=== PATIENT | female | born 1990 | race Caucasian/White ===

== ENCOUNTER 2024-05-14 08:21 | Outpatient (AMB) | payer OTHER, SELFPAY ==
--- NOTE | 2024-05-14 08:32 | A.OFFPC_ITS ---
Vital Signs 05/14/24 08:36 05/14/24 09:18 Height 5 ft 1 in Weight 193 lb 4 oz BMI 36.5 BP 132/88 128/84 Blood Pressure Location Rt brachial Lt brachial Position Sitting Sitting Respiration 12 Pulse 92 Pulse Source Pulse Oximeter Temp 98.7 F Temp Source Oral Pulse Oximetry (%) 98 Oxygen Delivery Method Room Air Intake Visit Reasons: Est. 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 She transferred from [facility]. The patient takes 5 mg of amlodipine daily for hypertension. Her blood pressure is suboptimal today, but when she checks it at home it is within normal limits. It tends to run higher at the office she says. She was seen at urgent care about a month ago for chest pain which was diagnosed as acid reflux. Patient states EKG was normal. She took omeprazole for 2 weeks, and symptoms resolved on this medication. She does not have recurrent chest pain, but she gets acid reflux sometimes when she has marinara sauce or spicy food. She is taking Pepcid as needed. No vomiting, blood in stools, dysphagia, unexplained weight loss. She would like to see Dermatology for an ongoing scalp rash for years. She says it is bumpy and red. Sometimes it is scaly. She uses a shampoo that is bilx-vmh-[id number] for psoriasis, and this has helped significantly. She also has eczema that she uses an gxjl-nyd-nahflli lotion for, and she would like a skin exam. She has been on medications for ADHD since age 14. She is stable on Adderall 30 mg half a tablet twice daily. She is also on bupropion for depression which is controlled. 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 She takes Zyrtec for allergies and Flonase as needed. She gets some wheezing in the winter due to allergies and uses albuterol for this. ROS: Constitutional: No unexplained weight loss, fever, chills, fatigue or night sweats. Respiratory: No shortness of breath, cough or sputum production. Cardiovascular: No chest pain, chest pressure or chest discomfort. No palpitations or pedal edema. Gastrointestinal: No anorexia, nausea, vomiting or diarrhea. No abdominal pain or blood in stool. Psychiatric: No SI/HI. Physical exam: Constitutional: Alert, in no distress. Eyes: Pupils are equal, round and reactive to light. Extraocular muscles intact. Respiratory: Clear to auscultation. Cardiovascular: S1 S2 regular. No murmurs. Gastrointestinal: Abdomen soft, non-tender, non-distended. Skin: A few red papules scattered on the upper extremities. Extremities: Warm and well perfused. No clubbing, cyanosis or edema. 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 How often do you have a drink containing alcohol?: Monthly or less 2. How many drinks containing alcohol do you have on a typical day when you are drinking?: 1 or 2 3. How often do you have six or more drinks on one occasion?: Never Total Score: 1 Physical exam (Primary Care) Vital Signs: Last Vital Signs Temp 98.7 F 05/14/24 08:36 Pulse 92 05/14/24 08:36 Resp 12 05/14/24 08:36 BP 132/88 05/14/24 08:36 Pulse Ox 98 05/14/24 08:36 Oxygen Delivery Method Room Air 05/14/24 08:36 BMI result Body Mass Index 36.5 Tobacco/Smoking Status: Tobacco use Status Tobacco use date assessed 05/14/24 05/14/24 08:40 Patient Tobacco Use Status Former Tobacco user 05/14/24 08:40 Immunizations Boostrix Tdap 2.5 Lf unit-8 mcg-5 Lf/0.5 mL intramuscular syringe Performing Provider: EUGENE Ferrer Performing Location: [facility] Administered by: Ai Roland CMA on 05/14/24 09:18 Dose Route Admin Location Dispensed Lot Number Expiration Date NDC Guidance Services Coordinator 0.5 mL IM Right Deltoid 0.5 mL [id number] 06/03/26 78736-908-24 D[facility] Room VIS Given Date VIS Provided VIS Publication Date 05/14/24 Single Vaccine 21 Eligibility Eligibility Date Funding Source Not [facility] Eligible 05/14/24 Private Assessment and Plan Assessment & Plan (1) Hypertension: Code(s): I10 - Essential (primary) hypertension Qualifiers: Hypertension type: primary hypertension Qualified Code(s): I10 - Essential (primary) hypertension Plan: Lifestyle modifications reviewed with the patient. Continue amlodipine 5 mg. Blood pressure is suboptimal, but it sounds like she has a component of office hypertension. She will bring a log from home to review at her physical. (2) Depression: Code(s): F32.A - Depression, unspecified Qualifiers: Depression Type: other depression Qualified Code(s): F32.89 - Other specified depressive episodes Plan: Stable. Continue Wellbutrin XL 300 mg daily. (3) ADHD: Code(s): F90.9 - Attention-deficit hyperactivity disorder, unspecified type Qualifiers: Attention deficit-hyperactivity disorder type: unspecified Qualified Code(s): F90.9 - Attention-deficit hyperactivity disorder, unspecified type Plan: Stable. Continue Adderall 30 mg half a tablet twice daily. (4) Eczema: Code(s): L30.9 - Dermatitis, unspecified Plan: Refer to dermatology. (5) Acid reflux: Code(s): K21.9 - Gastro-esophageal reflux disease without esophagitis Qualifiers: Esophagitis presence: without esophagitis Qualified Code(s): K21.9 - Gastro-esophageal reflux disease without esophagitis Plan: Recommended avoidance of spicy and acidic foods. Weight loss may also decrease symptoms. Patient will continue wcav-[id number]-psrzzgz antacids as needed. Plan Patient is due for a physical exam in May. She will schedule next available. Overdue for Tdap-transfer record reviewed. Tdap administered today. Orders: Orders TDaP Immunization Today Z23 - Encounter for immunization Medications: New albuterol sulfate 90 mcg/actuation 2 puffs inhalation .Q4 H PRN 8.5 grams 0RF shortness of breath or wheezing Boostrix Tdap (diphth,pertus(acell),tetanus) 0.5 mL IM ONCE 0.5 mL 0RF NS Z23 - Encounter for immunization Coding Level of Care Code New Pt Level 4 (46956) Diagnoses Primary hypertension I10 Hypertension type: primary hypertension Other depression F32.89 Depression Type: other depression Attention deficit hyperactivity disorder (ADHD), unspecified ADHD type F90.9 Attention deficit-hyperactivity disorder type: unspecified Eczema L30.9 Gastroesophageal reflux disease without esophagitis K21.9 Esophagitis presence: without esophagitis
[2024-05-14 08:36] VITALS: BP 132/88; PULSE 92; RESP 12; TEMP 37.1; O2SAT 98; BMI 36.5
[2024-05-14 09:18] VITALS: BP 128/84
== END 2024-05-14 09:18 | disposition home or self-care (01) ==
PROVIDERS: PCP Internal Medicine; Visit Provider Physician Assistant Medical
DX: I10 Essential (primary) hypertension (principal); F32.89 Other specified depressive episodes; F90.9 Attention-deficit hyperactivity disorder, unspecified type; L30.9 Dermatitis, unspecified; K21.9 Gastro-esophageal reflux disease without esophagitis; Z23 Encounter for immunization

== ENCOUNTER → 2024-05-14 08:21 | Outpatient (BNVA) | payer OTHER, SELFPAY | PROVIDERS: PCP Internal Medicine; Visit Provider Physician Assistant Medical | DX: I10 Essential (primary) hypertension (principal); F32.89 Other specified depressive episodes; F90.9 Attention-deficit hyperactivity disorder, unspecified type; L30.9 Dermatitis, unspecified; K21.9 Gastro-esophageal reflux disease without esophagitis; Z79.899 Other long term (current) drug therapy; Z23 Encounter for immunization | CPT/HCPCS: 90471; 90715 ==

== ENCOUNTER 2024-07-02 08:27 | Outpatient (AMB) | payer OTHER, SELFPAY ==
--- NOTE | 2024-07-02 08:30 | A.OFFPC_ITS ---
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 The patient takes 5 mg of amlodipine daily for hypertension. The patient was contact by Dermatology, but she did not schedule the appointment yet. She also mentions a mole on her right upper back. It has been there for a few years. It has slowly enlarged. No personal or family history of skin cancer. I referred her anew and asked her to call [facility] back to schedule the appointment. She has been on medications for ADHD since age 14. She is stable on Adderall 30 mg half a tablet twice daily. She is also on bupropion for depression which is controlled. 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 UDS ordered, and she signed a controlled substance contract today. She takes Zyrtec for allergies and Flonase as needed. She gets some wheezing in the winter due to allergies and uses albuterol for this. She would like to see a dietitian to help with weight loss. Referred. She thomas schedule her eye exam. Her anatomic pathology assistant is in [place]. She is up to date. ROS: Constitutional: No unexplained weight loss, fever, chills, fatigue or night sweats. Eyes: No vision changes, blurry vision, double vision, eye pain, eye redness, eye discharge. ENT: No hearing loss, sneezing, congestion, runny nose or sore throat. Respiratory: No shortness of breath, cough or sputum production. Cardiovascular: No chest pain, chest pressure or chest discomfort. No palpitations or pedal edema. Gastrointestinal: No anorexia, nausea, vomiting or diarrhea. No abdominal pain or blood in stool. Genitourinary: No dysuria, hematuria, urinary frequency. Neurologic: No headache, dizziness, syncope, unilateral weakness, ataxia, numbness or tingling in the extremities. Musculoskeletal: No muscle pain, back pain, joint pain or swelling. Hematologic/Lymphatics: No bleeding or bruising. No painful lymph nodes. Skin: No rash or itching. Endocrine: No cold or heat intolerance. No polyuria or polydipsia. Psychiatric: No depression or anxiety. No SI/HI. Physical exam: Constitutional: Alert, in no distress. Head: Normocephalic. Eyes: Pupils are equal, round and reactive to light. Extraocular muscles intact. Ear, Nose and Throat: Canals clear. TMs normal. Normal nasal mucosa. No nasal discharge. No oral lesions. Neck: Supple, Full range of motion. No lymphadenopathy. No palpable thyroid masses. Respiratory: Clear to auscultation. Cardiovascular: S1 S2 regular. No murmurs. Gastrointestinal: Abdomen soft, non-tender, non-distended. Normal bowel sounds. No palpable masses. Neurologic: No focal neurological deficits. Symmetric patellar reflexes. Moves all extremities spontaneously. Sensation intact bilaterally. Skin: Asymmetric brown nevus on the right upper back with heterogenous coloring and rough surface Musculoskeletal: No gross deformities. Normal range of motion. Extremities: Warm and well perfused. No clubbing, cyanosis or edema. 3+ peripheral pulses bilaterally. Psychiatric: Normal mood and affect [facility] Medical History (Updated 07/02/24 @ 13:52 by EUGENE Ferrer) Routine physical examination Obesity Change in nevus Acid reflux Eczema Vitamin D deficiency Wheezing ADHD Hypertension Renal cyst Depression Allergic rhinitis Family History (Updated 05/14/24 @ 09:07 by Ai Roland CMA) Paternal Grandmother Lung cancer Maternal Aunt Cancer Father Hypertension Other FH: mental illness Substance use Social History Housing: House Patient Tobacco Use Status: Former Tobacco user Years Smoked: 4 e-Cigarette/Vaping Use: Never Used Second Hand Smoke Exposure: No service: No Current occupational status: employed 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 1. Little interest or pleasure in doing things: several days 2. Feeling down, depressed, or hopeless: not at all 3. Trouble falling or staying asleep, or sleeping too much: not at all 4. Feeling tired or having little energy: several days 5. Poor appetite or overeating: several days 6. Feeling bad about yourself - or that you are a failure or have let yourself or your family down: not at all 7. Trouble concentrating on things, such as reading the newspaper or watching television: several days 8. Moving or speaking so slowly that other people could have noticed. Or the opposite - being so fidgety or restless that you have been moving around a lot more than usual: not at all 9. Thoughts that you would be better off or of hurting yourself in some way: not at all Total score: 4 79076 - PHQ-9 Billing: Yes Source: Developed by Drs. Miquel Caballero, Barbra Whipple, Santy Cruz and colleagues, with an educational brenna from [employer]. Thrive Questionnaire Date Thrive assessed: 07/02/24 I am a: Patient What is your living situation today?: I have a steady place to live Within the past 12 months, did the food you bought not last and you didn't have the money to get more?: Never true Within the past 12 months, did you worry whether your food would run out before you got money to buy more?: Never true Do you have trouble paying for medicines?: No Do you have trouble getting transportation to medical appointments?: No Do you have trouble paying your heating and electricity bill?: No Do you have trouble taking care of your child, family member or friend?: No Do you have trouble with day-to-day activities such as bathing, preparing meals, shopping, managing finances, etc.?: No Are you currently unemployed and looking for a job?: No Are you interested in more education?: No Please select the resources that you would like help with: None Currently or been in a relationship where the following occur: No concerns reported THRIVE Score: 0 AUDIT C Alcohol Use Questionnaire (AUDIT-C) 1. How often do you have a drink containing alcohol?: 2-4 times a month 2. How many drinks containing alcohol do you have on a typical day when you are drinking?: 1 or 2 3. How often do you have six or more drinks on one occasion?: Never Total Score: 2 CAROLE-7 AMB Questionnaire CAROLE-7 Date CAROLE - 7 assessed: 07/02/24 Feeling nervous, anxious, or on edge: 1 = Several days Not being able to stop or control worryin = Not at all Worrying too much about different things: 0 = Not at all Trouble relaxin = Not at all Being so restless that it is hard to sit still: 0 = Not at all Becoming easily annoyed or irritable: 1 = Several days Feeling afraid as if something awful might happen: 0 = Not at all Total CAROLE-7 score (0-4 normal; 5-9 mild; 10-14 moderate; 15-21 severe): 2 Source: Developed by Drs. Miquel Caballero, Barbra Whipple, Santy Cruz and colleagues, with an educational brenna from [employer]. CAROLE-7 Assessment Billing CAROLE-7 Assessment Tool: CAROLE-7 Assessment 14801 Physical exam (Primary Care) Vital Signs: Last Vital Signs Temp 96.4 F L 07/02/24 08:34 Pulse 91 07/02/24 08:34 Resp 13 07/02/24 08:34 BP 131/68 07/02/24 08:34 Pulse Ox 97 07/02/24 08:34 Oxygen Delivery Method Room Air 07/02/24 08:34 BMI result Body Mass Index 36.5 Tobacco/Smoking Status: Tobacco use Status Tobacco use date assessed 07/02/24 07/02/24 08:36 Patient Tobacco Use Status Former Tobacco user 07/02/24 08:33 e-Cigarette/Vaping Use Never Used 07/02/24 08:36 PHQ-9: PHQ-9 Score PHQ-9: Total score 4 07/02/24 08:42 Thrive Assessment: Date of Thrive Assessment Date Thrive assessed 07/02/24 07/02/24 08:33 Currently or been in a relationship where the following occur: No concerns reported Office Procedures Flu Questionnaire Does the patient have a severe egg allergy?: No Does the patient have severe life threatening allergies?: No Does the patient have a fever or illness today?: No Has the patient ever had Guillain-Parks Syndrome?: No Has the patient ever had any past reaction to a flu shot?: No Immunizations Fluarix Triv [id number] (PF) 45 mcg (15 mcg x 3)/0.5 mL IM syringe Performing Provider: EUGEEN Ferrer [place] [facility] [place] [facility] Administered by: Samantha Odom RN on 07/02/24 09:17 Dose Route Admin Location Dispensed Lot Number Expiration Date NDC Health And Safety Coordinator 0.5 mL IM Right Deltoid 0.5 mL [id number] 02/22/25 69011-967-51 [employer] VIS Given Date VIS Provided VIS Publication Date 07/02/24 Single Vaccine 21 Eligibility Eligibility Date Funding Source Not C Eligible 07/02/24 Private Administration Comments: Patient declined the VIS. Coding Level of Care Code Est Pt Prev Care 18-39y(95773) Diagnoses Routine physical examination Z00.00 Additional Codes CAROLE-7 Assessment Billing - CAROLE-7 Assessment Tool: CAROLE-7 Assessment 02419 ([id number]) PHQ-9 - 57507 - PHQ-9 Billing: Yes ([id number]) Assessment & Plan Assessment & Plan (1) Routine physical examination: Code(s): Z00.00 - Encounter for general adult medical examination without abnormal findings Category: Medical Plan Patient is seen today for a routine physical. As part of this visit we reviewed the following issues, which are considered and essential part of preventative health in this age group: - Breast Cancer screening - Annual Last Chalker exam - Blood pressure screening annually - Cholesterol screening - Osteoporosis prevention including calcium/vitamin D intake, weight bearing exercise & smoking cessation - Nutritional and exercise counseling - Counseling of injury prevention including fire prevention, smoke alarms and seat belt usage - Screening for depression - Prevention of and/or testing for infectious diseases - Education about skin cancer - Recommendations about immunizations - Recommendation of an eye exam - Screening for substance abuse Follow up in 6 months for a medication review. Orders: Orders TSH reflex Free T4 Today E55.9 - Vitamin D deficiency, unspecified, I10 - Essential (primary) hypertension, Z00.00 - Encounter for general adult medical examination without abnormal findings, Z51.81 - Encounter for therapeutic drug level monitoring Complete Blood Count no Diff Today E55.9 - Vitamin D deficiency, unspecified, I10 - Essential (primary) hypertension, Z00.00 - Encounter for general adult medical examination without abnormal findings, Z51.81 - Encounter for therapeutic drug level monitoring Vitamin D 1,25 dihydroxy Today E55.9 - Vitamin D deficiency, unspecified Lipid Panel Today E55.9 - Vitamin D deficiency, unspecified, E78.5 - Hyperlipidemia, unspecified, I10 - Essential (primary) hypertension, Z00.00 - Encounter for general adult medical examination without abnormal findings, Z51.81 - Encounter for therapeutic drug level monitoring Comprehensive Met. Panel Today E55.9 - Vitamin D deficiency, unspecified, I10 - Essential (primary) hypertension, Z00.00 - Encounter for general adult medical examination without abnormal findings, Z51.81 - Encounter for therapeutic drug level monitoring Drug Screen Urine Today E55.9 - Vitamin D deficiency, unspecified, I10 - Essential (primary) hypertension, Z00.00 - Encounter for general adult medical examination without abnormal findings, Z51.81 - Encounter for therapeutic drug level monitoring Influenza [id number] Immunization Today Z23 - Encounter for immunization Referrals Professor Of Genetics Nutrition Referral E66.9 - Obesity, unspecified Medications: New bupropion HCl XL 300 mg PO DAILY 90 tabs 3RF amlodipine 5 mg PO DAILY 90 tabs 3RF Refilled dextroamphetamine-amphetamine 30 mg 1 tab PO DAILY 30 tabs 0RF
[2024-07-02 08:34] VITALS: BP 131/68; PULSE 91; RESP 13; TEMP 35.8; O2SAT 97; BMI 36.5
== END 2024-07-02 09:16 | disposition home or self-care (01) ==
PROVIDERS: PCP Physician Assistant Medical; Visit Provider Physician Assistant Medical
DX: Z23 Encounter for immunization (principal); Z00.00 Encounter for general adult medical examination without abnormal findings

== ENCOUNTER → 2024-07-02 08:27 | Outpatient (BNVA) | payer OTHER, SELFPAY | PROVIDERS: PCP Physician Assistant Medical; Visit Provider Physician Assistant Medical | DX: Z00.00 Encounter for general adult medical examination without abnormal findings (principal); Z23 Encounter for immunization; E55.9 Vitamin D deficiency, unspecified; I10 Essential (primary) hypertension | CPT/HCPCS: 90471; 90656; 96127 ==

== ENCOUNTER 2024-12-25 09:02 | Outpatient (REF) | payer OTHER, SELFPAY ==
--- OUTSIDE RECORDS SUMMARY | 2024-12-25 09:32 | XMS_ITS | Clinical Summary ---
Author Organization [facility] Address [address] [place] [address] Care Team Providers Care Dynamite Shooter Name Role Phone Pcp, No Primary Care Provider Unavailabl e Allergies No known active allergies Medications Cetirizine HCl (ZYRTEC ALLERGY PO) ZyrTEC Allergy 10 MG Oral Tablet ; Start Date: ; End Date: Active amLODIPine (NORVASC) 5 MG tablet Take 5 mg by mouth. 03/12/2022 Active amphetamine-dex troamphetamine (ADDERALL) 30 MG tablet Take 0.5 tablets by mouth 2 (two) times a day. 07/15/2022 Active buPROPion (WELLBUTRIN XL) 300 MG 24 hr tablet Take 300 mg by mouth. 03/12/2022 Active fluticasone (FloNASE) 50 mcg/spray nasal spray 1 spray into each nostril. Active montelukast (SINGULAIR) 10 MG tablet Take 10 mg by mouth. 01/18/2022 Active Active Problems No known active problems Encounters Date Type Department Care Team Description 10/09/2024 4:15 PM EST Office Visit [facility] [address] [id number] Gage Mayfield MD Skypek, Katherine Elizabeth Acute bacterial sinusitis (Primary Dx); Essential hypertension; Acute cough; History of COVID-19 10/09/2024 Travel from Last 3 Months Social History Tobacco Use Types Packs/Day Years Used Date Smoking Tobacco: Never Smokeless Tobacco: Never Tobacco Cessation:Counseling Given: Not Answered Alcohol Use Standard Drinks/Week Comments Not Currently 0 (1 standard drink = 0.6 oz pur e alcohol) Comments Unknown Sex and Gender Information Value Date Recorded Sex Assigned at Female 09/17/2022 2:15 PM EST Legal Sex Female 4:03 PM EDT Gender Identity Female 09/17/2022 2:15 PM EST Sexual Orientation Choose not to disclose 2022 2:15 PM EST Last Filed Vital Signs Vital Sign Reading Time Taken Comments Blood Pressure 151/99 10/09/2024 4:20 PM EST Pulse 86 10/09/2024 4:20 PM EST Temperature 37.1 ??C (98.8 ??F) 10/09/2024 4:20 PM ES T Respiratory Rate 18 10/09/2024 4:20 PM EST Oxygen Saturation 98% 10/09/2024 4:20 PM EST Inhaled Oxygen Concentration - - Weight 81.6 kg (180 lb) 10/09/2024 4:20 PM EST Height 154.9 cm (5' 1 ) 10/09/2024 4:20 PM EST Body Mass Index 34.01 10/09/2024 4:20 PM EST Plan of Treatment Health Maintenance Due Date Last Done Comments Hepatitis C Virus Screening 1988 HIV Screening 2001 DTaP/Tdap/Td Vaccines (1 - Tdap) 2007 Hepatitis B Vaccines (1 of 3 - 19+ 3-dose series) 2007 Pap Smear (Ages 21-65) 2009 Influenza Vaccine 03/26/2024 06/05/2023, , 05/31/2021, Additional history exists COVID-19 Vaccine ( season) 2024 10/29/2023, 09/13/2021, 11/13/2020, Additional history exists HPV Vaccines Aged Out No longer eligi ble based on patient's age to complete this topic Pneumococcal Vaccine: Pediatric (0-5 Years) and At-Risk Patients (6 to 49 Years) Aged Out No longer eligible based on patient's age to complete this topic Insurance [facility] PPO Care Teams Dynamite Shooter Relationship Specialty Start Date End Date Pcp, No PCP - General General Medicine 09/17/22
--- OUTSIDE RECORDS SUMMARY | 2024-12-25 09:33 | XMS_ITS ---
Author Name [facility] Organization Unknown Results Test Name/Text Value Interpretation Date Range Source PROLACTIN 7.6ng/mL Normal [id number] [facility] TSH WITH REFLEX T4 FREE 1.97uIU/mL Normal [id number] 0. 35 - 4.5 [facility] FSH 8.5mIU/mL Normal [id number] [facility] GRANULOCYTES 51% Normal [id number] 23 - 78 [facility] ABSOLUTE MONOS 0.5K/uL Normal [id number] 0.2 - 1.5 CT [facility] IMMATURE GRANULOCYTES 0% Normal [id number] 0 - 0 .45 [facility] ABSOLUTE IMMATURE GRANULOCYTES 0K/uL Normal [id number] 0 - 0.3 [facility] MONOCYTES 10% Normal [id number] 0 - 12 [facility] PLATELET COUNT 316K/uL Normal [id number] 150 - 480 [facility] WBC 5.6K/uL Normal [id number] 3.7 - 10.3 [facility] MH RDW 13% Normal [id number] 11.1 - 13.3 [facility] MMH ABSOLUTE GRANULOCYTES 2.9K/uL Normal [id number] 2.2 - 7.3 [facility] RBC 4.55M/uL Normal [id number] 4 - 5.4 [facility] H ABSOLUTE LYMPHS 2.1K/uL Normal [id number] 1.5 - 4.9 C [facility] MCHC 33.3g/dL Normal [id number] 31 - 36 [facility] H NUCLEATED RBC 0% Normal [id number] 0 - 0.2 [facility] LYMPHS 37% Normal [id number] 16 - 50 [facility] H ABSOLUTE EOS 0.1K/uL Normal [id number] 0 - 0.7 [facility] HGB 13.6g/dL Normal [id number] 12.1 - 15.7 [facility] MMH ABSOLUTE BASO 0.1K/uL Normal [id number] 0 - 0.2 [facility] MPV 11fL Normal [id number] 8 - 12 [facility] MCH 30PG Normal [id number] 27 - 34 [facility] ABSOLUTE NUCLEATED RBC 0K/uL Normal [id number] 0 - 0.012 [facility] MCV 90fL Normal [id number] 83 - 102 [facility] H BASOPHILS 1% Normal [id number] 0 - 2 [facility] HCT 40.9% Normal [id number] 36 - 46 [facility] EOSINOPHILS 2% Normal [id number] 0 - 6 [facility] MMH C TRACHOMATIS Negative Normal [id number] - [facility] N GONORRHOEAE Negative Normal [id number] - [facility] Estradiol SerPl-mCnc 31pg/mL Normal [facility] DHEA-S SerPl-mCnc 181mcg/dL Normal 19 - 237 [facility] History of Medication Use Medication Directions Dispensed Refills Start Date End Date Stat amoxicillin-clavula heather (AUGMENTIN) 875-125 MG per tablet Take 1 tablet by mouth 2 (two) times a day. 10/09/2024 active amLODIPine (NORVASC) 5 mg tablet Take 5 mg by mouth. as directed 03/12/2022 active buPROPion (WELLBUTRIN XL) 300 MG 24 hr tablet Take 300 mg by mouth. 03/12/2022 active montelukast (SINGULAIR) 10 mg tablet Take 10 mg by mouth nightly. 01/18/2022 active montelukast (SINGULAIR) 10 MG tablet Take 10 mg by mouth. 01/18/2022 active Montelukast Sodium 10 MG Oral Tablet Montelukast Sodium 10 MG Oral TabletTAKE ONE TABLET BY MOUTH AT BEDTIME Quantity: 90 Refills: 2Kgiorgiy Amberly ROCA Start : [id number] 06/01/2020 completed Cetirizine HCl (ZYRTEC ALLERGY PO) ZyrTEC Allergy 10 MG Oral Tablet ; Start Date: ; End Date: active fluticasone propionate (FLONASE) 50 mcg/actuation nasal spray Administer 1 spray into each nostril daily. active Problems Problem Status Onset Date Problem Type Date of Resoluti on Source Essential hypertension active EncounterDiagnosisAct [facility] Acute bacterial sinusitis active EncounterDiagnosisAct [facility] Acute cough active EncounterDiagnosisAct [facility] History of COVID-19 active EncounterDiagnosisAc t [facility] Acute low back pain, unspecified back pain laterality, unspecified whether sciatica present active EncounterDiagnosisAct [facility] History of kidney stones active EncounterDiagnosisAct [facility] Immunizations Vaccine Date Source Lot Number Status Flucelvax Quadrivalent 0.5 M L Intramuscular Suspension Prefilled Syringe 06/05/2023 [facility] [id number] com pleted Flucelvax Quadrivalent 0.5 M L Intramuscular Suspension Prefilled Syringe 07/31/2022 [facility] [id number] com pleted Moderna COVID-19 Vaccine 100 MCG/0.5ML Intramuscular Suspension 09/13/2021 [facility] complet ed Flucelvax Quadrivalent 0.5 M L Intramuscular Suspension Prefilled Syringe 05/31/2021 [facility] [id number] com pleted Pfizer-BioNTech COVID-19 Vac c 30 MCG/0.3ML Intramuscular Suspension 11/13/2020 [facility] complet ed Pfizer-BioNTech COVID-19 Vac c 30 MCG/0.3ML Intramuscular Suspension 10/23/2020 [facility] complet ed Fluzone Quadrivalent 0.5 ML Intramuscular Suspension 07/04/2017 [facility] completed Fluzone SUSP 05/17/2016 [facility] [id number] completed Tdap (Boostrix) 01/07/2014 [facility] T2SEG completed Tdap 03/07/2009 [facility] completed HPV (Gardasil) 02/13/2008 [facility] completed HPV (Gardasil) 10/16/2007 [facility] completed HPV (Gardasil) 08/14/2007 [facility] completed Influenza (Split) 08/16/2006 [facility] complet ed Meningo (Menomune) 01/01/2006 [facility] comple franchesca Td 01/07/2003 [facility] completed Hepatitis B 07/09/2000 [facility] completed Hepatitis B 01/29/2000 [facility] completed MMR 03/28/1999 [facility] completed DTaP 03/27/1993 [facility] completed HIB 11/13/1989 [facility] completed MMR 08/15/1989 [facility] completed IPV 1988 [facility] completed DTaP 1988 [facility] completed DTaP 1988 [facility] completed IPV 1988 [facility] completed DTaP 1988 [facility] completed IPV 1988 [facility] completed Encounters Encounter Type Encounter Reason Primary Diagnosis Location Date Ambulatory Other Other [facility] 10/09/2024 Ambulatory [facility] 07/03/2024 Ambulatory Acute frontal sinusitis, unspecified [facility] 09/17/2022 Ambulatory Low back pain, unspecified [facility] 06/29/2022 Ambulatory Bitten by cat, subsequent encounter [facility] 04/26/2022 Ambulatory Bitten by cat, subsequent encounter [facility] 04/19/2022 Ambulatory Contact with and (suspected) exposure to rabies [facility] 04/15/2022 Emergency Bitten by cat, initial encounter [facility] 04/12/2022 Care Team Organization Name Specialty Phone Email Start Date End [facility] provided,No Primary Care 08/10/2024 5 [facility] No provided Primary Care 07/03/2024 [facility] Amberly KNIGHT Primary Care 05/26/2024 [facility] Amberly Richards Primary Care 05/18/2024 [facility] 04/28/2024 [facility] 06/20/2023 [facility] CLAUDIA MUNOZ Primary Care 06/05/2023 4 [facility] Amberly KNIGHT Primary Care 06/05/2023 3 [facility] 09/17/2022 5 [facility] NO PCP Primary Care 09/17/2022 3 [facility] PCP,No Primary Care 06/29/2022 [facility] MICKEY KEBEDE Primary Care 2021 2 [facility] NO PCP Primary Care 04/12/2022 2 [facility] SRIRAM CARDENAS Primary Care 05/31/2021 3
--- OUTSIDE RECORDS SUMMARY | 2024-12-25 09:33 | XMS_ITS | Clinical Summary ---
Author Organization [facility] Address [address] [place] [address] Care Team Providers Care Bakery Technician Name Role Phone Amberly Richards Primary Care Provider [phone] Carolina Staples Unavailable Unavailable Amberly Richards Unavailable [phone] Allergies No known active allergies Medications Cetirizine HCl (ZyrTEC Allergy) 10 MG tablet TAKE 1 TABLET DAILY. 30 0 07/18/2011 Active FLUTICASONE PROPIONATE, NASAL, (FT Allergy Relief 24 HR) 50 MCG/ACT nasal spray USE 2 SPRAYS IN EACH NOSTRIL ONCE DAILY 0 12/02/2015 Active amLODIPine Besylate (NORVASC) 5 MG tablet TAKE ONE TABLET BY MOUTH EVERY DAY DIRECTED 90 2 04/13/2021 Active Amphetamine-Dex troamphetamine (ADDERALL) 30 MG tablet Take one half tablet (15 mg total) by mouth 2 (two) times a day. 30 tablet 04/06/2024 Active buPROPion ER (WELLBUTRIN XL) 300 MG 24 hr tablet take one tablet by mouth every day 90 tablet 1 04/06/2024 Active Active Problems Problem Noted Date Diagnosed Date Depression 10/05/2021 Overview (09/29/2023): Impression - [id number]: Not well controlled at all. I added venlafaxine and she will continue with the bupropion.; I advised the patient to start having an agenda for herself with activity scheduled forward her free time during the week. I told her to be more in touch with her family given that they have a very good relationship which is note ring. I also advised her to start exercising at least 3 of 4 times a week. I advised the patient to write down what hobbies she has and invest time on them.; The patient will start looking for psychotherapy and I gave her some tips to read a couple of books: The book of Brittany, and women that run with the wolannette. Will follow up within 1 month or before that if needed. She agrees with the plan. Impression - [id number]: Well controlled. Continue with management and follow-up every 6 months. Renal cyst 06/29/2021 Overview (10/29/2023): 2020- cyst - needs 6m fup HTN (hypertension) 01/09/2021 Overview (09/29/2023): Impression - [id number]: It was well controlled with 5 milligrams of lisinopril but given side effects-dry cough-I will stop the lisinopril and start the patient on 2.5 milligrams of amlodipine. She will follow up within 1 month. I advised the patient to stop the medication and call back immediately if having side effects. She agrees with the plan. Impression - 08Kyf2067: Well controlled. Continue with 5 milligrams of amlodipine daily and monitor every 6 months. Fibrocystic breast changes, bilateral 11/21/2016 Overview (09/29/2023): Impression - [id number]: Suggesting baseline US with LAUREN. Pt agreeable. She is to monitor and do monthly SBE and call if any changes. Sees WEIGHT ENGINEER in December or so. Obesity 05/24/2015 Dry eye syndrome 10/07/2013 Vitamin D deficiency 12/18/2012 Overview (09/29/2023): Impression - 97Gjm5713: Restart Vit D Impression - 82Kzf6486: I advised the patient to take 5000 units of vitamin-D daily. Will monitor within a year. Former smoker 07/18/2011 Overview (09/29/2023): Description: social smoker for a couple years in teen years only. 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 Cont same. F/u annually Impression - 35Ygf7071: Very well controlled on the current dosage of Adderall and without side effects. Continue with same dosage and follow up in 3 months. Resolved Problems Problem Noted Date Diagnosed Date Resolved Date Nasal congestion 07/11/2023 10/29/2023 Overview (09/29/2023): Impression - [id number]: Advised continuing with flonase and Zyrtec daily for symptom relief. Allergic conjunctivitis 05/08/2023 03/0 12/2023 Encounter for immunization 07/31/2022 0 10/29/2023 Overview (09/29/2023): Impression - 93Qwz4726: Patient had a flu shot in the office today without complications. Foot pain 01/23/2022 10/29/2023 Overview (09/29/2023): Impression - 04Keq7592: I will order x-rays to further assess for stress fracture given that she started recently doing long hikes but I believe that it might be secondary to tendinitis due to compensation of her gait. The patient had a twisted ankle on the left side 2 weeks before she started with the pain on the right foot. She will also use ibuprofen 600 milligrams 3 times a day for 5 days and then stop the medication and will also do ice compresses for 10 minutes each time, twice a day for the next 5 days. I also referred the patient for physical therapy. Will follow up on the results of the x-rays.; Will monitor the symptoms. Advised to call or come back if not improving/worsening. Low back pain 01/23/2022 10/29/2023 Overview (09/29/2023): Impression - [id number]: Likely muscle skeletal in nature. I prescribed ibuprofen, 600 milligrams, 3 times a day for 5 days and I referred the patient for physical therapy. If not improving after month on physical therapy patient will call me and will further investigate. Cough 04/13/2021 10/29/2023 Overview (09/29/2023): Impression - [id number]: The patient had a fenton virus test in the office today which was negative. I believe that she is having the cough due to side effect of the medication. Impression - 09Ers2684: Start albuterol inhaler as needed for cough relief.; Advised OTC Mucinex during the day and cough suppressant at night. Encouraged use of cool mist humidifier overnight, adequate hydration, salt water gargles.; Advised pt seek emergency medical attention of severe difficulty breathing and pain with breathing develops.; Work excuse provided for the remainder of the week.; Follow up if symptoms worsen or do not improve by next week.; Pt verbalizes understanding and acceptance for plan. Acute bronchitis, unspecified organism 05/24/2015 10/29/2023 History of Recurrent nephrolithiasis 11/21/2010 06/20/2021 Overview (09/29/2023): Transitioned From: Abdominal Pain; Pain During Urination (Dysuria) Impression - [id number]: Due for evaluation with urology - never had the imaging and 24-hr urine tests he wanted. Ecouragd her to f/u Impression - 83Pqh1087: Pelvic discomfort and hematuria; history of kidney stones.; ; Ultrasound of the renal and bladder ordered today and Flomax prescribed.; ; Hydrate and follow up pending imaging results. ; Go to the emergency room if any fever vomiting or severely worsening symptoms. Immunizations Name Administration Dates Next Due COVID-19, mRNA (Moderna Pre Fall 2022) Monovalent, 100 mcg/0.5 ml or 50 mcg/0.25 ml dose 09/13/2021 COVID-19, mRNA (Pfizer Pre F all 2022) Monovalent, 30 mcg/0.3 ml 11/13/2020,10/23/2020 Covid-19, mRNA (Pfizer Comir david) Seasonal, 30 mcg/0.3 mL (12+) 10/29/2023 DTaP 03/27/1993, 0,1988,09/24,1988 HPV4 (Gardasil 4) 02/13/2008,10/16/2007,08/14/20 07 Hep B (adult) 07/09/2000,01/29/2000,12/29/1999 Hib (PRP-OMP) 11/13/1989 IPV 11/27/1989, 9,1988,07/24 Influenza (SEASONAL) - 06/01/2015,07/08/2014 Influenza,injectable,MDCK, P rsrv Fr,Quad 06/05/2023,07/31/2022,05/31/2021 Influenza,injectable,quad,Prsrv Fr 07/04/2017 Influenza,seasonal,trivalent ,preservat kwadwo (FLUZONE MDV) 05/17/2016 Influenza,split(incl.purifie d surface antigen) 08/16/2006 MMR 03/28/1999,08/15/1989 Meningococcal MPSV4 (Menomune) 01/01/2006 Rabies IM 04/26/2022, 2,04/15/2022,04/12 Td (adult), adsorbed 01/07/2003 Tdap 01/07/2014,03/07/2009 Family History Medical History Relation Name Comments Hypertension Father Hypertension : Father Other Father Metabolic syndr ome : Father Diabetes Maternal aunt Insulin depend ent diabetes mellitus : Maternal Aunt Diabetes Maternal grandmother Diabete s Mellitus : Maternal Grandmother Lipid/Cholesterol Abnormality Mother Pure Hypercholestero lemia : Mother Alcohol/Drug Other Alcoholism : Fa claudy History Blood Cell Disorder/Hemoglobinopathy Other Aplastic Anemi a : Family History;maternal cousin Depression Other Depression : Fa claudy History CAD/PVD - Early Paternal grandfather Kelley nary Artery Disease : Paternal Grandfather Other Paternal grandmother Suicide Completion : Paternal Grandmother Other Sister HELLP syndrome, antepartum : Sister Relation Name Status Comments Father Maternal aunt Maternal grandmother Mother Other Paternal grandfather Paternal grandmother Sister Social History Tobacco Use Types Packs/Day Years Used Date Smoking Tobacco: Never Smokeless Tobacco: Never Comments:Smoking Status:No c urrent tobacco use Alcohol Use Standard Drinks/Week Comments Not Currently 0 (1 standard drink = 0.6 oz pure alcohol) Alcoholic Drinks/day: Being A Social Drinker:Rarely Comments No Sex and Gender Information Value Date Recorded Sex Assigned at Not on file Legal Sex Female 11:09 PM EDT Gender Identity Not on file Sexual Orientation Not on file Last Filed Vital Signs Vital Sign Reading Time Taken Comments Blood Pressure 118/74 10/29/2023 1:13 PM EST Pulse 84 10/29/2023 1:13 PM EST Temperature 36.4 ??C (97.6 ??F) 10/29/2023 1:13 PM ES T Respiratory Rate 16 07/11/2023 10:38 AM EST Oxygen Saturation 97% 10/29/2023 1:13 PM EST Inhaled Oxygen Concentration - - Weight 87.2 kg (192 lb 3.2 oz) 10/29/2023 1:13 P M EST Height 157.5 cm (5' 2 ) 10/29/2023 1:13 PM EST Body Mass Index 35.15 10/29/2023 1:13 PM EST Plan of Treatment Health Maintenance Due Date Last Done Comments Hepatitis C Screening 1988 Pap Smear 2004 DTaP/Tdap/Td (8 - Td or Tdap) 01/08/2024 01/07/2014, 03/07/2009, 01/07/2003, Additional history exists COVID-19 Vaccine ( season) 2024 10/29/2023, 09/13/2021, 11/13/2020, Additional history exists Influenza (Season Ended) 2025 023, 07/31/2022, 05/31/2021, Additional history exists Zoster (Shingrix) (1 of 2) 2038 Hib Completed 11/13/1989 Hep B Completed 07/09/2000, 12/1999, 12/29/1999 Meningococcal ACWY Aged Out 01/01/2006 No longer eligible based on patient's age to complete this topic HPV Vaccine Completed 02/13/2008, 09/27, 08/14/2007 LDL Cholesterol Discontinued 06/05/2023, 0404/2022, 10/18/2020, Additional history exists Physical Discontinued 06/05/2023, 12/26, 11/23/2020, Additional history exists Hep A Aged Out No longer eligi ble based on patient's age to complete this topic Pneumococcal Aged Out No longer eligi ble based on patient's age to complete this topic Goals Goal Patient Goal Type Associated Problems Recent Progress Patient-Stated? Author Blood Pressure < 140/90 Blood Pressure 118/74(2023 1:13 PM EST) [place] Note: Above is your goal for blood pressure control. You may be able to prevent, reduce or eliminate the medication required for your blood pressure by regular measurement of your blood pressure at home, since home readings are often more reliable than measurements at the doctor? s office. You can also improve your blood pressure by getting regular exercise, keeping a normal weight, reducing your sodium/salt intake to 2000 mg/day, reducing caffeine and by limiting your alcohol intake. Men should limit consumption to no more than 2 drinks per day (beer, wine, or mixed drinks) and women should limit to one drink per day. Follow the DASH diet, a diet low in fat, cholesterol, red meat, and sweets. It emphasizes fruits, vegetables, and low-fat dairy foods. The DASH diet also includes whole-grain products, fish, poultry, and nuts. Procedures Procedure Name Priority Date/Time Associated Diagnosis Comments LIPID PANEL, PLASMA Routine 06/05/2023 9 :39 AM EDT from Last 3 Months or Most Recently Relevant to Health Maintenance Results * (ABNORMAL) LIPID PANEL, PLASMA (06/05/2023 9:39 AM EDT) Cholesterol 185 0 - 199 mg/dL [facility] CONVERSIONS Triglyceride 97 0 - 150 mg/dL [facility] CONVERSIONS VLDL Cholesterol 19 5 - 40 mg/dL [facility] CONVERSIONS HDL Cholesterol 57 50 - 80 mg/dL [facility] CONVERSIONS LDL Cholesterol 108(H) 0 - 100 mg/dL [facility] CONVERSIONS Cholesterol Non-HDL 128 0 - 130 mg/dl [facility] CONVERSIONS CHOL/HDL Ratio 3.2 PHCT CONVERSIONS 06/05/2023 9:39 AM EDT Narrative PHCT CONVERSIONS - 06/05/2023 5:33 PM EDT FASTING: NO Fasting reference interval. ??[facility] Lipid testing results require a 12 hour fasting specimen. ??Use caution when interpreting non-fasting cholesterol and triglyceride results. Testing Performed at: [facility], [address] [place] [address], , Woods Manager: Lynsey Hughes MD [id number] us Amberly [facility] Final Res ult PHCT CONVERSIONS from Last 3 Months or Most Recently Relevant to Health Maintenance Insurance [employer] Care Teams Bakery Technician Relationship Specialty Start Date End Date Amberly Richards PA [address] [place] [address] PCP - General 04/01/23 Amberly Richards PA [address] [place] [address] PCP - Backup PCP Family Medicine 09/26/23 Carolina Staples 04/01/23
--- OUTSIDE RECORDS SUMMARY | 2024-12-25 09:33 | XMS_ITS | Clinical Summary ---
Author Organization [facility] Address [address] [place] [address] Care Team Providers Care Piping Supervisor Name Role Phone Pcp, No MD Primary Care Provider Unavailabl e Allergies No known active allergies Medications amLODIPine (NORVASC) 5 mg tablet Take 5 mg by mouth. as directed 2 Active dextroamphetami ne-amphetamine (ADDERALL) 5 mg tablet Take by mouth. Activ e montelukast (SINGULAIR) 10 mg tablet Take 10 mg by mouth nightly. 2 Active buPROPion XL (WELLBUTRIN XL) 300 mg 24 hr tablet Take 300 mg by mouth. 2 Active cetirizine (ZyrTEC) 10 mg tablet Take 10 mg by mouth in the morning. Active fluticasone propionate (FLONASE) 50 mcg/actuation nasal spray Administer 1 spray into each nostril daily. Active Active Problems No known active problems Immunizations Immunization Administration Dates Next Due Rabies 04/26/2022,04/19/2022,04/15/2022 ,04/12/2022 Social History Tobacco Use Types Packs/Day Years Used Date Smoking Tobacco: Never Smokeless Tobacco: Never Alcohol Use Standard Drinks/Week Comments Not Currently 0 (1 standard drink = 0.6 oz pur e alcohol) Comments No Sex and Gender Information Value Date Recorded Sex Assigned at Not on file Legal Sex Female 4:39 AM EST Gender Identity Not on file Sexual Orientation Not on file Last Filed Vital Signs Vital Sign Reading Time Taken Comments Blood Pressure 128/80 06/29/2022 7:14 PM EDT Pulse 90 06/29/2022 7:14 PM EDT Temperature 36.4 ??C (97.5 ??F) 06/29/2022 7:14 PM ED T Respiratory Rate 16 04/12/2022 4:04 PM EDT Oxygen Saturation 100% 06/29/2022 7:14 PM EDT Inhaled Oxygen Concentration - - Weight 79.4 kg (175 lb) 04/15/2022 11:33 AM EDT Height 154.9 cm (5' 1 ) 04/12/2022 2:16 PM EDT Body Mass Index 33.07 04/12/2022 2:16 PM EDT Plan of Treatment Health Maintenance Due Date Last Done Comments HIV Screening 1988 DTaP,Tdap,and Td Vaccines (1 - Tdap) 2006 Hepatitis C Screening 2006 Hepatitis B Vaccines (1 of 3 - 19+ 3-dose series) 2007 Pap Smear 2009 Cervical Cancer Screening 2018 HPV/Cotest 2018 COVID-19 Vaccine (4 - 2023-2 5 season) 2024 09/13/2021, 11/13/2020, 10/23/2020 Influenza Vaccine (Season Ended) 2025 Zoster Vaccines (1 of 2) 2038 HPV Vaccines Aged Out No longer eligi ble based on patient's age to complete this topic Hepatitis A Vaccines Aged Out No long er eligible based on patient's age to complete this topic MMR Vaccines Aged Out No longer eligi ble based on patient's age to complete this topic Meningococcal Vaccine Aged Out No mauricio joanna eligible based on patient's age to complete this topic Pneumococcal Vaccine: Pediatrics (0 to 5 Years) and At-Risk Patients (6 to 49 Years) Aged Out No longer eligible b ased on patient's age to complete this topic Insurance [facility] [employer] PPO Care Teams Piping Supervisor Relationship Specialty Start Date End Date Jessica Bearden MD [address] [place] [address] PCP - General Internal Medicine 04/12/22
[2024-12-25 11:17] LABS: Hematocrit 38.7 % (37.0-47.0); Hemoglobin 13.4 g/dl (12.0-16.0); Mean Corpuscular HGB Conc 34.6 g/dl (31.0-35.0); Mean Corpuscular Hemoglobin 30.8 pg (27.0-33.0); Mean Platelet Volume 10.8 fL (9.4-12.3); Platelet Count 313 X10*3/uL (160-400); Red Blood Count 4.35 X10*6/uL (4.20-5.50); Red Cell Distribution Width 12.9 % (11.0-16.0); White Blood Count 4.8 X10*3/uL (4.8-10.8)
[2024-12-25 11:49] LABS: Barbiturates, Urine Not Detected (Not Detect); Opiate Screen Urine Not Detected (Not Detect); Phencyclidine Screen Urine Not Detected (Not Detect)
[2024-12-25 11:50] LABS: Amphetamine Screen Urine POSITIVE (Not Detect); Benzodiazepines Screen Urine Not Detected (Not Detect); Buprenorphine Scr Not Detected (Not Detect); Cannabinoid Screen Urine Not Detected (Not Detect); Cocaine Screen Urine Not Detected (Not Detect); Fentanyl, urine Not Detected (Not Detect); Methadone Screen, Urine Not Detected (Not Detect); Oxycodone Screen Urine Not Detected (Not Detect)
[2024-12-25 12:01] LABS: Alanine Aminotransferase 34 U/L (0-31); Albumin Level 4.2 g/dL (3.5-5.0); Alkaline Phosphatase 81 U/L (39-117); Anion Gap 10 (12-20); Aspartate Amino Transferase 33 U/L (5-31); Bilirubin Total 0.4 mg/dL (0.0-1.0); Blood Urea Nitrogen 7 mg/dL (9-16); Calcium 9.5 mg/dL (8.4-10.2); Carbon Dioxide 26 mmol/L (22-29); Chloride 109 mmol/L (96-108); Cholesterol 177 mg/dL (<200); Estimated Glomerular Filt Rate > 60; Glucose Random 88 mg/dL (60-115); HDL Cholesterol 46 mg/dL (>40); LDL Cholesterol Calculated 117 mg/dL (<100); Potassium 3.9 mmol/L (3.3-5.1); Sodium 141 mmol/L (135-145); TSH reflex Free T4 2.01 uIU/mL (0.32-4.0); Total Protein 7.4 g/dL (6.5-8.0); Triglycerides 72 mg/dL (<150)
[2024-12-30 16:13] LABS: VITAMIN D (1,25 OH) D3 74 pg/mL; Vit D (1,25-Dihydroxy) Total 74 pg/mL (18-72); Vitamin D (1,25 OH) D2 <8 pg/mL
== END 2024-12-25 09:03 | disposition home or self-care (01) ==
LOC: HO.WFDLDS 09:02
PROVIDERS: Visit Provider Physician Assistant Medical
DX: Z00.00 Encounter for general adult medical examination without abnormal findings (principal); E78.5 Hyperlipidemia, unspecified; E55.9 Vitamin D deficiency, unspecified; I10 Essential (primary) hypertension; Z51.81 Encounter for therapeutic drug level monitoring
CPT/HCPCS: 80053; 80061; 80307; 82652; 84443; 85027

== ENCOUNTER 2024-12-31 08:59 | Outpatient (AMB) | payer OTHER, SELFPAY ==
--- NOTE | 2024-12-31 09:02 | A.OFFPC_ITS ---
Vital Signs 12/31/24 09:06 Height 5 ft 1 in Weight 195 lb 2 oz BMI 36.9 BP 110/74 Blood Pressure Location Rt brachial Position Sitting Pulse 95 Pulse Source Pulse Oximeter Temp 97.5 F Temp Source Temporal Artery Scan Pulse Oximetry (%) 97 Oxygen Delivery Method Room Air Intake Visit Reasons: med review Intake Note: Letitia presents in the office today for a medication review. Allergies No Known Allergies Allergy (Verified 12/31/24 09:03) Tobacco use date assessed: 12/31/24 Dental Screening Dental Screen Date: 12/31/24 Did you have a dental visit in the last 12 months?: Yes Did you have a dental problem in the last 6 months where you did not have access to dental care?: No Was dental information given to patient?: Patient has dentist HPI HPI Comments History of Present Illness Details This is a 34-year-old female with a past medical history of hypertension, former smoker, depression, seasonal allergies and obesity presenting for follow up. The patient takes 5 mg of amlodipine daily for hypertension. The patient was contact by Dermatology, but she did not schedule the appointment yet. She said she will call. ADHD on Adderall. UDS appropriate. Controlled substance agreement on file. She takes Zyrtec for allergies and Flonase as needed. She has not needed albuterol recently. We talked about her weight at the last visit, and she brought it up again today. I had referred her to a dietitian. She says she has a lot of difficulty with motivation exercising and maintaining a healthy diet. There are a lot of snacks and treats at work. 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 They recently changed the computer system which has been difficult and brought up a lot of stress, and sometimes she eats due to stress. She is interested in weight loss medication. LFTs were mildly elevated on her recent labs. No excessive alcohol use. No GI symptoms. No recent infections. She will repeat the test in 4-6 weeks. 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 She started the OCP to help with irregular periods. This is working. ROS: Constitutional: No unexplained weight loss, fever, chills, fatigue or night sweats. Eyes: No vision changes, blurry vision, double vision, eye pain, eye redness, eye discharge. Gastrointestinal: No anorexia, nausea, vomiting or diarrhea. No abdominal pain or blood in stool. Hematologic/Lymphatics: No bleeding or bruising. Skin: No rash, jaundice or pruritus Psychiatric: +stress and anxiety Physical exam: Constitutional: Alert, in no distress. Head: Normocephalic. Neck: Supple, Full range of motion. No lymphadenopathy. No palpable thyroid masses. Respiratory: Clear to auscultation. Cardiovascular: S1 S2 regular. No murmurs. Gastrointestinal: Abdomen soft, non-tender, non-distended. Normal bowel sounds. No palpable masses. Extremities: Warm and well perfused. No clubbing, cyanosis or edema. Psychiatric: Normal mood and affect [facility] Medical History (Updated 12/31/24 @ 09:21 by EUGENE Ferrer) Anxiety LFT elevation Routine physical examination Obesity Change in nevus Acid reflux Eczema Vitamin D deficiency Wheezing ADHD Hypertension Renal cyst Depression Allergic rhinitis Family History Paternal Grandmother Lung cancer Maternal Aunt Cancer Father Hypertension Other FH: mental illness Substance use Social History (Updated 12/31/24 @ 09:05 by Niesha Hargrove MA) Housing: House Alcohol intake: current Patient Tobacco Use Status: Former Tobacco user Years Smoked: 4 e-Cigarette/Vaping Use: Never Used Second Hand Smoke Exposure: No service: No Current occupational status: employed 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 1. Little interest or pleasure in doing things: several days 2. Feeling down, depressed, or hopeless: not at all 3. Trouble falling or staying asleep, or sleeping too much: several days 4. Feeling tired or having little energy: several days 5. Poor appetite or overeating: several days 6. Feeling bad about yourself - or that you are a failure or have let yourself or your family down: not at all 7. Trouble concentrating on things, such as reading the newspaper or watching television: several days 8. Moving or speaking so slowly that other people could have noticed. Or the opposite - being so fidgety or restless that you have been moving around a lot more than usual: not at all 9. Thoughts that you would be better off or of hurting yourself in some way: not at all Total score: 5 Depression Screening Interpretation: Positive Depression Screening Follow-up: Other (Refer to behavioral health) Depression Screening Done: Yes 51126 - PHQ-9 Billing: Patient declined-do not bill Source: Developed by Drs. Miquel Caballero, Barbra Whipple, Santy Cruz and colleagues, with an educational brenna from [email or web address]. Thrive Questionnaire Date Thrive assessed: 07/02/24 I am a: Patient What is your living situation today?: I have a steady place to live Within the past 12 months, did the food you bought not last and you didn't have the money to get more?: Never true Within the past 12 months, did you worry whether your food would run out before you got money to buy more?: Never true Do you have trouble paying for medicines?: No Do you have trouble getting transportation to medical appointments?: No Do you have trouble paying your heating and electricity bill?: No Do you have trouble taking care of your child, family member or friend?: No Do you have trouble with day-to-day activities such as bathing, preparing meals, shopping, managing finances, etc.?: No Are you currently unemployed and looking for a job?: No Are you interested in more education?: No Please select the resources that you would like help with: None Currently or been in a relationship where the following occur: No concerns reported THRIVE Score: 0 AUDIT C Alcohol Use Questionnaire (AUDIT-C) 1. How often do you have a drink containing alcohol?: Monthly or less 2. How many drinks containing alcohol do you have on a typical day when you are drinking?: 1 or 2 3. How often do you have six or more drinks on one occasion?: Never Total Score: 1 Score Reviewed/Action Taken: No CAROLE-7 AMB Questionnaire CAROLE-7 Date CAROLE - 7 assessed: 12/31/24 Feeling nervous, anxious, or on edge: 2 = More than half the days Not being able to stop or control worryin = Several days Worrying too much about different things: 2 = More than half the days Trouble relaxin = Several days Being so restless that it is hard to sit still: 1 = Several days Becoming easily annoyed or irritable: 1 = Several days Feeling afraid as if something awful might happen: 0 = Not at all Total CAROLE-7 score (0-4 normal; 5-9 mild; 10-14 moderate; 15-21 severe): 8 Source: Developed by Drs. Miquel Caballero, Barbra Whipple, Santy Cruz and colleagues, with an educational brenna from [employer]. CAROLE-7 Assessment Billing CAROLE-7 Assessment Tool: CAROLE-7 Assessment 76939 Physical exam (Primary Care) Vital Signs: Last Vital Signs Temp 97.5 F 12/31/24 09:06 Pulse 95 12/31/24 09:06 BP 110/74 12/31/24 09:06 Pulse Ox 97 12/31/24 09:06 Oxygen Delivery Method Room Air 12/31/24 09:06 BMI result Body Mass Index 36.9 Tobacco/Smoking Status: Tobacco use Status Tobacco use date assessed 12/31/24 12/31/24 09:11 Patient Tobacco Use Status Former Tobacco user 12/31/24 09:11 e-Cigarette/Vaping Use Never Used 12/31/24 09:11 PHQ-9: PHQ-9 Score PHQ-9: Total score 5 12/31/24 09:26 Depression Screening Interpretation: Positive Depression Screening Follow-up: Other (Refer to behavioral health) Thrive Assessment: Date of Thrive Assessment Date Thrive assessed 07/02/24 12/31/24 09:11 Currently or been in a relationship where the following occur: No concerns reported Coding Level of Care Code Est Pt Level 4 (41355) Complex EM visit Add On G2211 Diagnoses LFT elevation R79.89 Vitamin D deficiency E55.9 Primary hypertension I10 Hypertension type: primary hypertension Anxiety F41.9 Attention deficit hyperactivity disorder (ADHD), unspecified ADHD type F90.9 Attention deficit-hyperactivity disorder type: unspecified Obesity E66.9 Additional Codes CAROLE-7 Assessment Billing - CAROLE-7 Assessment Tool: CAROLE-7 Assessment 73850 ([id number]) Assessment & Plan Assessment & Plan (1) LFT elevation: Code(s): R79.89 - Other specified abnormal findings of blood chemistry Category: Medical Plan: Return in 4-6 weeks for labs. Avoid alcohol. Follow low-cholesterol diet. (2) Vitamin D deficiency: Code(s): E55.9 - Vitamin D deficiency, unspecified Category: Medical Plan: Normal. No need for supplementation at this time. (3) Hypertension: Code(s): I10 - Essential (primary) hypertension Category: Medical Qualifiers: Hypertension type: primary hypertension Qualified Code(s): I10 - Essential (primary) hypertension Plan: Stable. Continue amlodipine. (4) Anxiety: Code(s): F41.9 - Anxiety disorder, unspecified Category: Medical Plan: Refer to behavioral health. (5) ADHD: Code(s): F90.9 - Attention-deficit hyperactivity disorder, unspecified type Category: Medical Qualifiers: Attention deficit-hyperactivity disorder type: unspecified Qualified Code(s): F90.9 - Attention-deficit hyperactivity disorder, unspecified type Plan: Stable on current regimen. (6) Obesity: Code(s): E66.9 - Obesity, unspecified Category: Medical Plan: Reviewed lifestyle modifications including decreasing portion sizes, low carbohydrate/low sugar diet, regular exercise. She denies contraindications to GLP 1. Patient was given instructions to contact her insurance company to see if they cover this specifically for weight loss. If they do she will contact me if she would like to start the medication. Administration and side effects reviewed. Plan Follow up in 7 weeks to review labs. Orders: Referrals Behavioral Health Referral F41.9 - Anxiety disorder, unspecified Patient Instructions: Call insurance and ask if they cover Wegovy or Zepbound specifically for weight loss with BMI 36.9 and a history of hypertension. If they do send me a message so I can prescribe it.
[2024-12-31 09:06] VITALS: BP 110/74; PULSE 95; TEMP 36.4; O2SAT 97; BMI 36.9
--- OUTSIDE RECORDS SUMMARY | 2024-12-31 09:26 | XMS_ITS | Clinical Summary ---
Author Organization [facility], [facility]–1983 Address [address] [place] [address] Care Team Providers Care Forge Heater Name Role Phone Pcp, No MD Primary [...] patient's age to complete this topic Insurance [facility] [employer] PPO Care Teams Forge Heater Relationship Specialty Start Date End Date Jessica Bearden MD [address] [place] [address] PCP - General Internal Medicine 04/12/22
--- OUTSIDE RECORDS SUMMARY | 2024-12-31 09:26 | XMS_ITS | Clinical Summary ---
Author Organization [facility] Address [address] [place] [address] Care Team Providers Care Bottomer Operator Name Role Phone Pcp, No Primary Care [...] Description 10/09/2024 4:15 PM EST Office Visit [facility] [address] [id number] Gage Mayfield MD Skypek, Katherine [...] series) 2007 Pap Smear (Ages 21-65) 2009 COVID-19 Vaccine (2023- season) 2024 10/29/2023, 09/13/2021, 11/13/2020, Additional history exists Influenza Vaccine 03/26/2025 06/05/2023, , 05/31/2021, Additional history exists HPV Vaccines Aged Out No longer eligi ble based on patient's age to complete this topic Pneumococcal Vaccine: Pediatric (0-5 Years) and At-Risk Patients (6 to 49 Years) Aged Out No longer eligible based on patient's age to complete this topic Insurance [facility] PPO Care Teams Bottomer Operator Relationship Specialty Start Date End Date Pcp, No PCP - General General Medicine 09/17/22
--- OUTSIDE RECORDS SUMMARY | 2024-12-31 09:26 | XMS_ITS | Clinical Summary ---
Author Organization [facility] Address [address] [place] [address] Care Team Providers Care Beam Dyer Operator Name Role Phone Amberly Richards Primary Care Provider [phone] Carolina Staples Unavailable Unavailable Amberly Richards Unavailable [phone] Allergies No known active allergies Medications Cetirizine [...] Date Depression 10/05/2021 Overview (09/29/2023): Impression - [id number]: Not well controlled at all. I added [...] She agrees with the plan. Impression - [id number]: Well controlled. Continue with management and follow-up every 6 months. Renal cyst 06/29/2021 Overview (10/29/2023): 2020- cyst - needs 6m fup HTN (hypertension) 01/09/2021 Overview (09/29/2023): Impression - [id number]: It was well controlled with 5 milligrams of lisinopril but given side effects-dry cough-I will stop the lisinopril and start the patient on 2.5 milligrams of amlodipine. She will follow up within 1 month. I advised the patient to stop the medication and call back immediately if having side effects. She agrees with the plan. Impression - 92Zxb9860: Well controlled. Continue with 5 milligrams of amlodipine daily and monitor every 6 months. Fibrocystic breast changes, bilateral 11/21/2016 Overview (09/29/2023): Impression - 50Ocu4109: Suggesting baseline US with LAUREN. Pt agreeable. She is to monitor and do monthly SBE and call if any changes. 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 Obesity 05/24/2015 Dry eye syndrome 10/07/2013 Vitamin D deficiency 12/18/2012 Overview (09/29/2023): Impression - 36Riw2136: Restart Vit D Impression - 28Qjh8519: I advised the patient to take 5000 units of vitamin-D daily. Will monitor within a year. Former smoker 07/18/2011 Overview (09/29/2023): Description: social smoker for a couple years in teen years only. Allergic rhinitis 07/18/2011 ADHD, predominantly inattentive type 08/11/2009 Overview (09/29/2023): Impression - 17Wgo1445: Stable with meds which are well tolerated. Cont same. F/u annually Impression - 09Zkv8410: Very well controlled on the current dosage of Adderall and without side effects. Continue with same dosage and follow up in 3 months. Resolved Problems Problem Noted Date Diagnosed Date Resolved Date Nasal congestion 07/11/2023 10/29/2023 Overview (09/29/2023): Impression - 42Mde7392: Advised continuing with flonase and Zyrtec daily for symptom relief. Allergic conjunctivitis 05/08/2023 03/0 12/2023 Encounter for immunization 07/31/2022 0 10/29/2023 Overview (09/29/2023): Impression - 16Hsw0762: Patient had a flu shot in the office today without complications. Foot pain 01/23/2022 10/29/2023 Overview (09/29/2023): Impression - 59Dwn8081: I will order x-rays to further assess [...] pain 01/23/2022 10/29/2023 Overview (09/29/2023): Impression - 69Jnp6017: Likely muscle skeletal in nature. I prescribed ibuprofen, 600 milligrams, 3 times a day for 5 days and I referred the patient for physical therapy. If not improving after month on physical therapy patient will call me and will further investigate. Cough 04/13/2021 10/29/2023 Overview (09/29/2023): Impression - 00Aph2960: The patient had a fenton virus test in the office today which was negative. I believe that she is having the cough due to side effect of the medication. Impression - 15Ifw6530: Start albuterol inhaler as needed for cough [...] Pain; Pain During Urination (Dysuria) Impression - 44Wll4660: Due for evaluation with urology - never had the imaging and 24-hr urine tests he wanted. Ecouragd her to f/u Impression - 82Smu9254: Pelvic discomfort and hematuria; history of kidney [...] 140/90 Blood Pressure 118/74(2023 1:13 PM EST) iRdge Lima MA Note: Above is your goal [...] cholesterol and triglyceride results. Testing Performed at: [facility], [address] [place] [address], , Movie Actor: Lynsey Hughes MD CL#[id number] us Amberly [facility] Final Res ult PHCT CONVERSIONS from Last 3 Months or Most Recently Relevant to Health Maintenance Insurance [employer] Care Teams Beam Dyer Operator Relationship Specialty Start Date End Date Amberly Richards PA [address] [place] [address] PCP - General 04/01/23 Amberly Richards PA [address] [place] [address] PCP - Backup PCP Family Medicine 09/26/23 Carolina Staples 04/01/23
== END 2024-12-31 09:30 | disposition home or self-care (01) ==
LOC: HO.HMCFM 09:00
PROVIDERS: PCP Physician Assistant Medical; Visit Provider Physician Assistant Medical
DX: R79.89 Other specified abnormal findings of blood chemistry (principal); E55.9 Vitamin D deficiency, unspecified; E66.9 Obesity, unspecified; Z68.36 Body mass index [BMI] 36.0-36.9, adult; I10 Essential (primary) hypertension; F41.9 Anxiety disorder, unspecified; F90.9 Attention-deficit hyperactivity disorder, unspecified type

== ENCOUNTER → 2024-12-31 08:59 | Outpatient (BNVA) | payer OTHER, SELFPAY | PROVIDERS: PCP Physician Assistant Medical; Visit Provider Physician Assistant Medical | DX: R79.89 Other specified abnormal findings of blood chemistry (principal); E55.9 Vitamin D deficiency, unspecified; I10 Essential (primary) hypertension; F41.9 Anxiety disorder, unspecified; F90.9 Attention-deficit hyperactivity disorder, unspecified type; E66.9 Obesity, unspecified; Z68.36 Body mass index [BMI] 36.0-36.9, adult; Z79.899 Other long term (current) drug therapy | CPT/HCPCS: 96127 ==